=== PATIENT | female | born 1980 | race Caucasian/White ===

== ENCOUNTER → 2017-05-09 09:09 | Day surgery (SDC) | payer OTHER ==
[~2017-05-09 09:09] MED LIST: Heparin 2 UNITS/ML IVPREMIX* 1,000 ML IV ONE; Iodixanol* (CONTRAST) 320 MG/ML 100 ML SDV ONE; Ketorolac INJ* 30 MG/ML 1 ML VIAL ONE; LORazepam TAB(*) 1 MG ONE; Lidocaine 1% INJ* 10 MG/ML 30 ML SDV ONE; Midazolam* 1 MG/ML 10 ML VIAL (10 MG) ONE; Ondansetron INJ* 2 MG/ML VIAL ONE; Polidocanol 1% 20 MG/2 ML AMP IV ONE; Scopolamine 1.5 mg* PATCH TRANSDERM ONE; Scopolamine PATCH Remove* 1 NOTE MISC PATCH OFF ONE; fentaNYL* 50 MCG/ML 5 ML VIAL (250 MCG VIAL) ONE; nitroGLYCERIN DRIP* 0 MCG/0 ML BTL ONE
[2017-05-09 10:08] LABS: ABS Basophils 0 10^3/ul (0-0.2); ABS Eosinophils 0 10^3/ul (0-0.6); ABS Lymphocytes 2.4 10^3/ul (1.0-4.8); ABS Monocytes 0.5 10^3/ul (0-0.8); ABS Neutrophils 4.6 10^3/ul (1.5-7.7); ABS Nucleated RBC 0 10^3/ul; Eosinophil % 0.6 % (0-6); Hematocrit 41 % (35-47); Hemoglobin 14.3 g/dl (12.0-16.0); Lymphocyte % 32.1 % (25-47); Mean Corpuscular HGB Conc 35 g/dl (31-36); Mean Corpuscular Hemoglobin 31 pg (27-31); Mean Corpuscular Volume 88 fL (80-97); Mean Platelet Volume 8 um3 (7.4-10.4); Nucleated Red Blood Cells % 0; Platelet Count 261 10^3/ul (150-450); Red Blood Count 4.68 10^6/ul (4.0-5.4); Red Cell Distribution Width 13 % (10.5-15); White Blood Count 7.6 10^3/ul (3.5-10.8)
[2017-05-09 10:15] LABS: INR 0.9 (0.77-1.02)
[2017-05-09 10:18] LABS: EGFR Non-African American 76.1 (>60)
[2017-05-09 14:54] VITALS: BP 107/66
--- NOTE | 2017-05-09 15:45 | PN ---
Progress Note - Progress Note Date of Service: 05/09/17 SOAP: Subjective: Patient feels well. No pain. No nausea. Objective: 87, 106/68 (mean 77), 98% (RA) NAD, AAO x 3 Abd is soft, NT Right IJV site is soft, NT Dressing is C/D/I Assessment: 37 YOF s/p pelvic venography, foam sclerosant embolization of left pelvic varicose veins and coil embolization of the left ovarian vein. Plan: 1. Discharge to home. 2. Ibuprofen 400 mg PO every 6 hours x 3 days. (Increase up to 800 mg PRN). 3. Remove Scopolamine patch 1.5 mg from left mastoid process 05/12/17 morning. 4. 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 5. Clinic follow up will be 4-6 weeks and 6 months post procedure.
--- NOTE | 2017-05-09 16:42 | RAD ---
Procedures: 1. Pelvic venography. 2. Inferior vena cavography. 3. Embolization of pelvic varicose veins and left ovarian vein. HISTORY & INDICATION: Chronic pelvic pain in the presence of pelvic varicosities and left ovarian vein reflux. COMPARISON: Pelvic ultrasound dated April 04, 2017 that shows left greater than right pelvic varicose veins. MRV of the pelvis which again shows bilateral pelvic varicose veins as well as indication of caudal flow in the left ovarian vein. Although the right ovarian vein is top normal there is no definite reversal of flow seen on the MRV. ANESTHESIA: Lidocaine 1% injected locally at the access site. The patient received intravenous Fentanyl and Versed. Continuous cardiopulmonary was performed by Dr. Atkinson and the IR nurse. ADDITIONAL MEDICATIONS: Ativan 1 mg p.o. upon arrival. Scopolamine patch 1.5 mg transdermal applied to the left mastoid process. Fluoroscopy time: 18.9 minutes Contrast: 50 mL Visipaque [id number] Vessels Accessed: Percutaneous access was obtained with ultrasound guidance in the right internal jugular vein in the antegrade direction towards the heart. Catheter venography, with the catheter tip located within the lumen of the following veins, was performed at the inferior vena cava, left renal vein, left ovarian vein, parauterine pelvic varicose veins, right ovarian vein and right periuterine veins Anesthesia: Conscious sedation with IV Fentanyl and Versed as well as local 1% lidocaine injected locally at the arteriotomy site. Conscious sedation time: Timeout: 1249 hours Case end: 1357 hours Total conscious sedation time: 1 hour and 8 minutes Procedure and Imaging findings: Prior to the procedure the risk and benefits were carefully explained and informed consent was obtained from the patient. The patient was appropriately positioned on the table in the angiography suite. A formal time out was performed and all members of the team and the patient agreed to the patient, procedure and laterality. Preliminary ultrasound indicated a patent right internal jugular vein. The skin overlying the right internal jugular vein was prepped and draped in standard sterile fashion. Sterile precautions were employed including use of cap, mask, gown and sterile gloves. The skin overlying the internal jugular vein was anesthetized with 1% lidocaine. Real time ultrasound imaging shows the right internal jugular vein is patent and determined to be adequate for pelvic venography and coil embolization. Utilizing real time ultrasound visualization the internal jugular vein was accessed with an 18 gauge needle. An image was recorded and saved confirming appropriate intraluminal position of the needle tip. Blood return further confirmed position. Under fluoroscopic control a 0.035" wire was advanced into the IVC. The needle was removed, exchanged for a 5 [place]an access sheath and a 5 [place]an flush catheter was advanced approximately to the level of the iliac bifurcation. The wire was removed and venography was performed to locate the ostium of the left renal vein at the L1 level. Utilizing the combination of a hydrophilic 0.035 inch wire and a 5-[place]an curved tip catheter the left renal vein and subsequently the left ovarian vein were cannulated without difficulty. Through the 5-[place] catheter contrast venography in the left renal vein demonstrated stagnant as well as partially retrograde flow from the left renal vein down the left ovarian vein and into the pelvis. The left ovarian vein was observed to be dilated measuring up to 1.5 cm in diameter. The preprocedural imaging appearance of a bifurcated left ovarian vein bifurcating at approximately the level of the iliac crest was confirmed during venography. Contrast venography demonstrates the junction of the left ovarian vein from the left renal vein at the inferior endplate of the L1 vertebral body. Contrast injected into the left ovarian vein proximally slowly flowed into the left renal vein but there was stasis of venous flow in the proximal portion of the vein. Over a wire the 5-[place]an catheter was advanced to the more distal half of the left ovarian vein and contrast injected was seen to flow retrograde into the left pelvic varicosities where the contrast pooled in the patient's large varicose veins. The left pelvic varicose veins measure up to 1.4 cm in diameter. In light of the patient's clinical presentation including gravity dependent pelvic pain and with recent MRV findings it was decided to embolize the left pelvic varicosities and left ovarian vein. With the 0.035" wire maintaining access from the right internal jugular vein to the IVC, through the left renal vein and securely in the left ovarian vein, the short 5-Venezuelan access sheath was removed and replaced with a 7-Venezuelan x 45 cm Terumo Destination sheath. Under fluoroscopic control the long access sheath was advanced until the tip of the access sheath was within the superior portion of the left ovarian vein. Further contrast venography was performed through the access sheath again clearly demonstrating retrograde reflux in the left ovarian vein, filling of pelvic varicosities and draining of the pelvis via the right ovarian vein and branches of the bilateral internal iliac veins. The wire was reinserted into the left ovarian vein, the 5-[place]an catheter advanced into the more inferior portion of the left ovarian vein followed by the sheath being advanced until the tip was in the superior most portion of the left ovarian vein. Over the wire a 4-[place]an curved tip catheter was advanced into the largest pelvic varicose vein and the wire was removed. A total of 3 mL Polidocanol 1% mixed with room air to create a foam sclerosant was injected into the left pelvic varicose veins while intermittently checking progression of stasis with contrast injection. The catheter tip was drawn back to the level of the superior SI joint and reduced flow through the left varicose veins was evident. Beginning in the dominant left ovarian vein an 8 x 24 Azur embolization coil was slowly deployed from the level of the inferior sacroiliac joint and drawn up to the level of the L4/L5 intervertebral disc space. A second coil was deployed along the length of the left ovarian vein up to the level of the inferior endplate of L2. Contrast injected into the left renal vein close to the origin of the left ovarian vein shows no reflux of left renal blood flow down the left ovarian vein. Utilizing the 4-V[place]an catheter and hydrophilic Glidewire the right ovarian vein was cannulated. Contrast was injected into the proximal portion of the right ovarian vein and, though the vein is enlarged up to 1.1 cm in diameter, contrast appears to flow briskly into the IVC and not dependently into the pelvis. Over the wire the catheter was advanced to the right periuterine veins and contrast venography demonstrated mildly dilated right periuterine veins up to 6 mm in diameter but the veins appear to drain briskly through the right ovarian vein as well as the branches of the right iliac vein. Without definite retrograde flow in the right ovarian vein or definite pooling of contrast in the right parauterine veins, embolization was deferred at this time. The 4-Venezuelan catheter was removed. The sheath was then removed and gentle pressure was held on the right internal jugular vein access site for 10 minutes. The site was dressed with sterile gauze and the patient left the angiography suite in stable condition. SUMMARY OF PROCEDURE, IMAGING FINDINGS AND INTERVENTIONS PERFORMED: 1. Diagnostic studies performed: * Venous access was obtained at the right internal jugular vein in the antegrade direction (i.e. towards the heart) with ultrasound guidance. A sonographic image was recorded. * Diagnostic catheter venography (necessary to accurately diagnose venous reflux and to perform the appropriate interventions) was performed with the catheter tip in the inferior vena cava, left renal vein, left ovarian vein, left parauterine pelvic varicose veins, right ovarian vein and right parauterine veins. * Catheter venography was performed of the inferior vena cava, left renal vein, right renal vein, left ovarian vein, left parauterine pelvic varicose veins, right ovarian vein and right parauterine veins 2. Interpretation of diagnostic studies performed: * Pathologic caudal venous flow from the left renal vein, down the left ovarian vein filling the patient's periuterine varicose veins with pulling of contrast in the dilated left periuterine venous varicosities. * Although enlarged, there is no definite pathologic venous reflux identified in the right ovarian vein and therefore no right-sided embolization was performed. 3. Surgical interventions performed: * Catheter directed foam sclerosant embolization of the parauterine varicose veins and the distal most portions of the left ovarian vein. * Coil embolization of the left ovarian vein utilizing the following coils: Two 8 mm x 24 cm Terumo Azur coils. 4. Interpretation of interventions performed: * Final venography demonstrated occlusion of the parauterine varicose veins and no caudal venous reflux into the pelvis from the coil embolized left ovarian vein. * After embolizing the periuterine varicose veins and left ovarian vein, there is brisk patent flow in the left renal vein in the cephalad direction into the IVC and towards the heart. Plan: 1. Ibuprofen 400 mg p.o. Q 6 hours x 3 days. 2. The patient was advised to remove the Scopolamine patch 1.5 mg the morning of Friday, May 12, 2017. 3. Standard Interventional Radiology follow-up will include clinic RN call approximately 72 hours post procedure and 1 month and 6 month clinic follow-up appointment.
== END | disposition home or self-care (01) ==
LOC: CHICATH 09:09
PROVIDERS: ATTEND Radiology Diagnostic Radiology
DX: I86.2 Pelvic varices (principal); N94.89 Other specified conditions associated with female genital organs and menstrual cycle; Z87.891 Personal history of nicotine dependence; M79.605 Pain in left leg; M79.604 Pain in right leg; I83.93 Asymptomatic varicose veins of bilateral lower extremities
CPT/HCPCS: 36415; 37241; 80048; 80051; 84702; 85025; 85610; 85730; 99156; 99157; A9270-GY; C1884; C1887; J1644; J1885; J2250; J2405; J3010